=== PATIENT | female | born 1955 | race Caucasian/White ===

== ENCOUNTER 2021-10-29 10:00 | Outpatient (RCR) | payer OTHER, SELFPAY | END 2021-10-29 10:05 | disposition home or self-care (01) | LOC: OT 10:00 | PROVIDERS: Visit Provider Psychiatry & Neurology Neurology | DX: R20.0 Anesthesia of skin (principal); R20.2 Paresthesia of skin; G56.03 Carpal tunnel syndrome, bilateral upper limbs | CPT/HCPCS: 97010; 97014; 97035; 97140; 97165; 97530; G0283 ==

== ENCOUNTER 2022-06-04 11:00 | Outpatient (RCR) | payer OTHER, SELFPAY | END 2022-06-04 11:05 | disposition home or self-care (01) | LOC: PT 11:00 | PROVIDERS: Visit Provider Nurse Practitioner Family | DX: S42.302D Unspecified fracture of shaft of humerus, left arm, subsequent encounter for fracture with routine healing (principal); M79.602 Pain in left arm | CPT/HCPCS: 97010; 97014; 97110; 97163; 97164; G0283 ==

== ENCOUNTER 2022-08-24 11:00 | Outpatient (RCR) | payer MEDICARE, OTHER, SELFPAY | END 2022-08-24 11:05 | disposition home or self-care (01) | LOC: PT 11:00 | DX: S42.212A Unspecified displaced fracture of surgical neck of left humerus, initial encounter for closed fracture (principal); M75.42 Impingement syndrome of left shoulder | CPT/HCPCS: 97010; 97014; 97110; 97140; 97163; 97164; 97530; G0283 ==